=== PATIENT | female | born 1990 | race American Indian/Alaskan Native ===

== ENCOUNTER 2017-03-05 04:41 | Inpatient (IN) | payer SELFPAY ==
[2017-03-05] MEDS ORDERED: ZOFRAN IV ONE (04:57)
[2017-03-05 05:28] LABS: Hematocrit 50.5 % (30.3-42.9); Hemoglobin 17.6 gm/dl (10.1-14.3); Mean Corpuscular HGB Conc 35 % (30-34); Mean Corpuscular Hemoglobin 32 pg (28-32); Mean Corpuscular Volume 90 fl (79-97); Platelet Count 182 K/mm3 (140-440); Red Blood Count 5.59 M/mm3 (3.65-5.03); Red Cell Distribution Width 12.8 % (13.2-15.2)
[2017-03-05 05:35] LABS: Calcium 9.1 mg/dL (8.4-10.2)
[2017-03-05] MEDS ORDERED: NACL 0.9% 1000 ML 1,000 ML IV ONE ×2 (06:19→06:40)
[2017-03-05 06:24] LABS: Bacteria,Urine 1+ /HPF (Negative); Bilirubin,Urine NEG (Negative); Blood,Urine MOD (Negative); Color,Urine Yellow (Yellow); Hyaline Casts,Urine 4 /LPF; Mucus,Urine FEW /HPF; Nitrite,Urine NEG (Negative)
[2017-03-05] MEDS ORDERED: SUBLIMAZE IV ONE (06:41)
[2017-03-05] MEDS ORDERED: REGLAN IV ONE (06:41)
[2017-03-05] MEDS ORDERED: TESSALON PERLES PO ONE (06:43)
--- NOTE | 2017-03-05 06:48 | Emergency Department Report ---
HPI - General Chief Complaint: Nausea/Vomiting/Diarrhea Time Seen by Provider: 03/05/17 06:13 - HPI HPI: The patient is a 26-year-old female presents for evaluation of nausea and vomiting and abdominal pain. The patient reports 10-12 days of are and off abdominal pain, crampy in quality, moderate in severity, exacerbated with vomiting, and associated with recurrent episodes of nausea and vomiting. She also reports cough of same duration, generalized myalgias, and generalized weakness. The patient denies fever, trauma to the abdomen, chest pain, dyspnea, hemoptysis, diarrhea, blood in the stool, dark tarry stool, dysuria, hematuria, flank pain, genital discharge, inability to pass flatus, or vaginal bleeding. ED Past Medical Hx - Past Medical History Previous Medical History?: No - Surgical History Past Surgical History?: No - Social History Smoking Status: Current Every Day Smoker Substance Use Type: None - Medications Home Medications: Home Medications Medication Instructions Recorded Confirmed Last Taken Type No Known Home Medications [No 03/05/17 03/05/17 Unknown History Reported Home Medications] ED Review of Systems ROS: Stated complaint: WEAKNESS; N/V Other details as noted in HPI Constitutional: denies: fever ENT: denies: throat or neck pain Respiratory: denies: cough, shortness of breath Cardiovascular: denies: chest pain Endocrine: denies unexplained weight loss or gain Gastrointestinal: reports abdominal pain, nausea Genitourinary: denies: dysuria Musculoskeletal: denies: leg swelling Skin: denies: rash Neurological: denies: headache Hematological/Lymphatic: denies: easy bleeding or easy bruising Psych: denies sadness or hopelessness Physical Exam - Physical Exam Vital Signs: Vital Signs 03/05/17 03/05/17 04:47 05:40 Temperature 98.2 F 97.8 F Pulse Rate 109 H 80 Respiratory 16 16 Rate Blood Pressure 106/57 Blood Pressure 106/65 [Left] O2 Sat by Pulse 98 99 Oximetry Physical Exam: General: well-nourished, well-developed, no acute distress Head: Normocephalic, atraumatic Eyes: normal sclera ENT: Mucous membranes are pale and dry Neck: No neck stiffness, no cervical adenopathy Respiratory: Breath sounds equal bilaterally, no wheezing, rales, or rhonchi Cardio: S1 and S2 present, no murmurs, rubs, gallops, capillary refill is delayed Abdomen: Normoactive bowel sounds, soft abdomen, periumbilical tenderness present, no rigidity, no guarding or rebound tenderness Chest WALL/Back: No tenderness to palpation of the chest wall, no CVA tenderness with percussion Musc: No pitting edema Skin: No rash Neuro: no facial drooping, normal speech Psych: Normal affect ED Course Vital Signs 03/05/17 03/05/17 04:47 05:40 Temperature 98.2 F 97.8 F Pulse Rate 109 H 80 Respiratory 16 16 Rate Blood Pressure 106/57 Blood Pressure 106/65 [Left] O2 Sat by Pulse 98 99 Oximetry ED Medical Decision Making - Lab Data Result diagrams: 03/05/17 05:03 03/05/17 05:03 - Medical Decision Making The patient was seen and examined by myself. The patient is placed on a site monitor and continuous pulse ox. On initial evaluation, the patient was found to be in no distress. Evaluation orders are placed. IV access is established and the patient is given 1 L normal saline fluid bolus and Zofran for nausea, and IV analgesic for pain. Lab results revealed low Na and chloride levels, neg preg test, and elevated BUN of 69, elevated creatinine of 2.9, BUN/ creatinine ratio greater than 2-1, findings consistent with prerenal acute kidney failure. Urinalysis revealed elevated UWBC, although contamination suspected as u/a positive for epithelial cells and patient negative for dysuria/ freq. As patient has no history of kidney injury, and she is found to have new diagnosis of kidney failure, the patient will be admitted for continued fluid resuscitation/treatment of dehydration, and further evaluation of renal failure. The on-call hospitalist service was contacted. They agreed to admit the patient for further treatment and close monitoring. The ED admit order was placed. The patient was admitted in guarded condition. Critical care attestation.: If time is entered above; I have spent that time in minutes in the direct care of this critically ill patient, excluding procedure time. ED Disposition Clinical Impression: Dehydration, Nausea and vomiting in adult, Acute hyponatremia, Acute UTI ( urinary tract infection) Acute kidney failure Qualifiers: Acute renal failure type: unspecified Qualified Code(s): N17.9 - Acute kidney failure, unspecified Disposition: OP ADMIT IP TO THIS HOSP Is pt being admited?: Yes Does the pt Need Aspirin: No Condition: Serious Referrals: FERNANDO GONZALEZ MD [Primary Care Provider] - 3-5 Days Time of Disposition: 06:34
[2017-03-05 07:48] LABS: Band Neutrophils # (Manual) 0.3 K/mm3; Basophils % (Manual) 0 % (0.0-1.8); Eosinophils % (Manual) 0 % (0.0-4.3); Total Cells Counted 100
[2017-03-05 07:49] LABS: RBC Morphology Normal
[2017-03-05] MEDS ORDERED: ROCEPHIN/NS 1 GM/50 ML 1 GM/50 ML BAG IV ONE (08:09)
[2017-03-05] MEDS ORDERED: cefTRIAXone 1 GM in NACL 0.9% 20 ML IV ONE (09:00)
[2017-03-05 09:06] LABS: Albumin 4.1 g/dL (3.9-5); Bilirubin,Direct 0.2 mg/dL (0-0.2)
--- NOTE | 2017-03-05 09:15 | History and Physical Report ---
History of Present Illness Date of examination: 03/05/17 Date of admission: 03/05/17 08:06 Chief complaint: nausea,vomiting,abdominal pain for 2 weeks History of present illness: Patient is a 26-year-old with no significant medical history. She presents with nausea vomiting, abdominal pain and loss of appetite for 2 weeks. Nausea and vomiting is several times a day. Abdominal pain is 8/10, it is diffuse and sometimes both flanks, , dull pain with no radiation. Abdominal pain not related to meals. No fever. Symptoms getting worse therefore came to Emergency Department for evaluation. In ED found to have UTi and acute kidney injury. Started on iv fluids and Antibiotics. Will admit. Past History Past Medical History: No medical history Past Surgical History: No surgical history Social history: single, smoking, full code. denies: alcohol abuse, IV drug use Family history: hypertension Medications and Allergies Allergies Allergy/AdvReac Type Severity Reaction Status Date / Time No Known Allergies Allergy Verified 03/05/17 06:15 Home Medications Medication Instructions Recorded Confirmed Last Taken Type No Known Home Medications [No 03/05/17 03/05/17 Unknown History Reported Home Medications] Active Meds: Active Medications Dextrose/Sodium Chloride (D5ns) 1,000 mls @ 125 mls/hr IV DIRECT JEANNE Review of Systems All systems: negative (No headache, no cough, no chest pain. All other systems reviewed and are negative.) Exam - Physical Exam Narrative exam: GEN APPEARANCE : Not in acute distress, HEENT: Normocephalic, Atraumatic NECK : supple, no JVD LUNGS: Clear to auscultation bilaterally, no rales, no wheeze HEART: S1 and S2 regular tachy, no murmurs, rubs or gallop ABD: Soft, mild diffuse tender, tender left flank,no rebound tenderness, normal bowel sounds EXT: No edema,no clubbing, no cyanosis NEURO: Awake,alert, oriented x 3, no focal signs Psych: Normal mood - Constitutional Vitals: Temp Pulse Resp BP Pulse Ox 97.8 F 80 16 99/57 99 03/05/17 05:40 03/05/17 05:40 03/05/17 05:40 03/05/17 07:01 03/05/17 07:01 Results - Labs CBC & Chem 7: 03/06/17 08:34 03/06/17 08:34 Labs: Abnormal lab results 03/05/17 03/05/17 03/05/17 Range/Units 05:03 05:03 05:39 WBC 4.4 L (4.5-11.0) K/mm3 RBC 5.59 H (3.65-5.03) M/mm3 Hgb 17.6 H (10.1-14.3) gm/dl Hct 50.5 H (30.3-42.9) % MCHC 35 H (30-34) % RDW 12.8 L (13.2-15.2) % Monocytes % (Manual) 28.0 H (0.0-7.3) % Nucleated RBC % 1.0 H (0.0-0.9) % Lymphocytes # (Manual) 0.9 L (1.2-5.4) K/mm3 Monocytes # (Manual) 1.2 H (0.0-0.8) K/mm3 Sodium 131 L (137-145) mmol/L Chloride 84.3 L (98-107) mmol/L BUN 69 H (7-17) mg/dL Creatinine 2.7 H (0.7-1.2) mg/dL Glucose 111 H (65-100) mg/dL AST (5-40) units/L Urine WBC (Auto) 50.0 H (0.0-6.0) /HPF 03/05/17 03/05/17 Range/Units 06:58 06:58 WBC (4.5-11.0) K/mm3 RBC (3.65-5.03) M/mm3 Hgb (10.1-14.3) gm/dl Hct (30.3-42.9) % MCHC (30-34) % RDW (13.2-15.2) % Monocytes % (Manual) (0.0-7.3) % Nucleated RBC % (0.0-0.9) % Lymphocytes # (Manual) (1.2-5.4) K/mm3 Monocytes # (Manual) (0.0-0.8) K/mm3 Sodium 135 L (137-145) mmol/L Chloride (98-107) mmol/L BUN (7-17) mg/dL Creatinine 2.8 H (0.7-1.2) mg/dL Glucose (65-100) mg/dL AST 50 H (5-40) units/L Urine WBC (Auto) (0.0-6.0) /HPF Assessment and Plan Acute pyelonephritis. Admit to med surg. Started on Ceftriaxone. Give iv fluids. Urine culture Acute kidney injury due to vasomotor nephropathy. Creatinine 2.7. No previous history of chronic kidney disease.Start iv fluids. Repeat BMP in evening nausea and vomiting due to UTI. Zofran iv prn Dehydration. Due to vomiting.This should improve with iv fluids Hyponatremia. Recheck after iv fluids DVT prophylaxis with Heparin. Full code status
[2017-03-05] MEDS: D5NS 1,000 ML IV SCH (10:47)
[2017-03-05 19:44] LABS: Creatinine,Urine 74.2 mg/dL (0.1-20.0); Fractional Sodium Excretion 0.5
[2017-03-05 19:45] LABS: Calcium 7.7 mg/dL (8.4-10.2)
[2017-03-06] MEDS: D5NS 1,000 ML IV SCH ×2 (01:19→10:25)
[2017-03-06] MEDS: MORPHINE IV PRN ×2 (01:21→10:28)
[2017-03-06 09:13] LABS: Hematocrit 37.8 % (30.3-42.9); Hemoglobin 12.6 gm/dl (10.1-14.3); Mean Corpuscular HGB Conc 34 % (30-34); Mean Corpuscular Hemoglobin 31 pg (28-32); Mean Corpuscular Volume 91 fl (79-97); Platelet Count 132 K/mm3 (140-440); Red Blood Count 4.14 M/mm3 (3.65-5.03); Red Cell Distribution Width 12.5 % (13.2-15.2)
[2017-03-06 09:33] LABS: BUN/Creatinine Ratio 18; Blood Urea Nitrogen 20 mg/dL (7-17); Calcium 8.4 mg/dL (8.4-10.2); Hemolysis Index 4
[2017-03-06] MEDS ORDERED: cefTRIAXone 1 GM in NACL 0.9% 20 ML IV SCH (10:00)
[2017-03-06] MEDS: ZOFRAN IV PRN (10:30)
--- NOTE | 2017-03-06 15:09 | Progress Note ---
Assessment and Plan Assessment and plan: Acute pyelonephritis. Continue Ceftriaxone. Give iv fluids. Urine culture. Blood cultures no growth. CT abdomen done today-unremarkable. Acute kidney injury due to vasomotor nephropathy. Much improved. Creatinine 1.1 tday , was 2.7 on admission.. No previous history of chronic kidney disease. Continue iv fluids nausea and vomiting due to UTI. Zofran iv prn Dehydration. Due to vomiting.This should improve with iv fluids Hyponatremia. Recheck after iv fluids DVT prophylaxis with Heparin. Full code status Poss ri home tomorrow History Interval history: Feels better, Less vomiting, less abdominal pain Hospitalist Physical - Physical exam Narrative exam: GEN APPEARANCE : Not in acute distress, HEENT: Normocephalic, Atraumatic NECK : supple, no JVD LUNGS: Clear to auscultation bilaterally, no rales, no wheeze HEART: S1 and S2 regular tachy, no murmurs, rubs or gallop ABD: Soft, mild diffuse tender, tender left flank,no rebound tenderness, normal bowel sounds EXT: No edema,no clubbing, no cyanosis NEURO: Awake,alert, oriented x 3, no focal signs Psych: Normal mood - Constitutional Vitals: Temp Pulse Resp BP Pulse Ox 98.9 F 70 20 93/61 99 03/06/17 07:50 03/06/17 07:50 03/06/17 07:50 03/06/17 07:50 03/06/17 07:50 Results - Labs CBC & Chem 7: 03/06/17 08:34 03/06/17 08:34 Labs: Laboratory Last Values WBC 2.8 K/mm3 (4.5-11.0) L 03/06/17 08:34 RBC 4.14 M/mm3 (3.65-5.03) 03/06/17 08:34 Hgb 12.6 gm/dl (10.1-14.3) D 03/06/17 08:34 Hct 37.8 % (30.3-42.9) D 03/06/17 08:34 MCV 91 fl (79-97) 03/06/17 08:34 MCH 31 pg (28-32) 03/06/17 08:34 MCHC 34 % (30-34) 03/06/17 08:34 RDW 12.5 % (13.2-15.2) L 03/06/17 08:34 Plt Count 132 K/mm3 (140-440) L 03/06/17 08:34 [place]lin % (Auto) Music Mixer 03/05/17 05:03 Add Manual Diff Complete 03/05/17 05:03 Total Counted 100 03/05/17 05:03 Seg Neuts % (Manual) 45.0 % (40.0-70.0) 03/05/17 05:03 Band Neutrophils % 7.0 % 03/05/17 05:03 Lymphocytes % (Manual) 20.0 % (13.4-35.0) 03/05/17 05:03 Reactive Lymphs % (Man) 0 % 03/05/17 05:03 Monocytes % (Manual) 28.0 % (0.0-7.3) H 03/05/17 05:03 Eosinophils % (Manual) 0 % (0.0-4.3) 03/05/17 05:03 Basophils % (Manual) 0 % (0.0-1.8) 03/05/17 05:03 Metamyelocytes % 0 % 03/05/17 05:03 Myelocytes % 0 % 03/05/17 05:03 Promyelocytes % 0 % 03/05/17 05:03 Blast Cells % 0 % 03/05/17 05:03 Nucleated RBC % 1.0 % (0.0-0.9) H 03/05/17 05:03 Seg Neutrophils # Man 2.0 K/mm3 (1.8-7.7) 03/05/17 05:03 Band Neutrophils # 0.3 K/mm3 03/05/17 05:03 Lymphocytes # (Manual) 0.9 K/mm3 (1.2-5.4) L 03/05/17 05:03 Abs React Lymphs (Man) 0.0 K/mm3 03/05/17 05:03 Monocytes # (Manual) 1.2 K/mm3 (0.0-0.8) H 03/05/17 05:03 Eosinophils # (Manual) 0.0 K/mm3 (0.0-0.4) 03/05/17 05:03 Basophils # (Manual) 0.0 K/mm3 (0.0-0.1) 03/05/17 05:03 Metamyelocytes # 0.0 K/mm3 03/05/17 05:03 Myelocytes # 0.0 K/mm3 03/05/17 05:03 Promyelocytes # 0.0 K/mm3 03/05/17 05:03 Blast Cells # 0.0 K/mm3 03/05/17 05:03 WBC Morphology Not Reportable 03/05/17 05:03 Hypersegmented Neuts Not Reportable 03/05/17 05:03 Hyposegmented Neuts Not Reportable 03/05/17 05:03 Hypogranular Neuts Not Reportable 03/05/17 05:03 Smudge Cells Not Reportable 03/05/17 05:03 Toxic Granulation Not Reportable 03/05/17 05:03 Toxic Vacuolation Not Reportable 03/05/17 05:03 Dohle Bodies Not Reportable 03/05/17 05:03 Pelger-Huet Anomaly Not Reportable 03/05/17 05:03 Mook Rods Not Reportable 03/05/17 05:03 Platelet Estimate Appears normal 03/05/17 05:03 Clumped Platelets Not Reportable 03/05/17 05:03 Plt Clumps, EDTA Not Reportable 03/05/17 05:03 Large Platelets Not Reportable 03/05/17 05:03 Giant Platelets Not Reportable 03/05/17 05:03 Platelet Satelliting Not Reportable 03/05/17 05:03 Plt Morphology Comment Not Reportable 03/05/17 05:03 RBC Morphology Normal 03/05/17 05:03 Dimorphic RBCs Not Reportable 03/05/17 05:03 Polychromasia Not Reportable 03/05/17 05:03 Hypochromasia Not Reportable 03/05/17 05:03 Poikilocytosis Not Reportable 03/05/17 05:03 Anisocytosis Not Reportable 03/05/17 05:03 Microcytosis Not Reportable 03/05/17 05:03 Macrocytosis Not Reportable 03/05/17 05:03 Spherocytes Not Reportable 03/05/17 05:03 Pappenheimer Bodies Not Reportable 03/05/17 05:03 Sickle Cells Not Reportable 03/05/17 05:03 Target Cells Not Reportable 03/05/17 05:03 Tear Drop Cells Not Reportable 03/05/17 05:03 Ovalocytes Not Reportable 03/05/17 05:03 Helmet Cells Not Reportable 03/05/17 05:03 Forbes-Mcclusky Bodies Not Reportable 03/05/17 05:03 Premier Rings Not Reportable 03/05/17 05:03 Anjali Cells Not Reportable 03/05/17 05:03 Bite Cells Not Reportable 03/05/17 05:03 Crenated Cell Not Reportable 03/05/17 05:03 Elliptocytes Not Reportable 03/05/17 05:03 Acanthocytes (Spur) Not Reportable 03/05/17 05:03 Rouleaux Not Reportable 03/05/17 05:03 Hemoglobin C Crystals Not Reportable 03/05/17 05:03 Schistocytes Not Reportable 03/05/17 05:03 Malaria parasites Not Reportable 03/05/17 05:03 ESR 12 mm/Hr (0-20) 03/05/17 06:58 Guevara Bodies Not Reportable 03/05/17 05:03 Hem Pathologist Commnt No 03/05/17 05:03 Sodium 144 mmol/L (137-145) D 03/06/17 08:34 Potassium 3.5 mmol/L (3.6-5.0) L 03/06/17 08:34 Chloride 104.4 mmol/L (98-107) 03/06/17 08:34 Carbon Dioxide 27 mmol/L (22-30) 03/06/17 08:34 Anion Gap 16 mmol/L 03/06/17 08:34 BUN 20 mg/dL (7-17) H 03/06/17 08:34 Creatinine 1.1 mg/dL (0.7-1.2) 03/06/17 08:34 Estimated GFR > 60 ml/min 03/06/17 08:34 BUN/Creatinine Ratio 18 % 03/06/17 08:34 Glucose 114 mg/dL (65-100) H 03/06/17 08:34 Calcium 8.4 mg/dL (8.4-10.2) 03/06/17 08:34 Total Bilirubin 0.50 mg/dL (0.1-1.2) 03/05/17 06:58 Direct Bilirubin 0.2 mg/dL (0-0.2) 03/05/17 06:58 Indirect Bilirubin 0.3 mg/dL 03/05/17 06:58 AST 50 units/L (5-40) H 03/05/17 06:58 ALT 30 units/L (7-56) 03/05/17 06:58 Alkaline Phosphatase 81 units/L (35-129) 03/05/17 06:58 C-Reactive Protein 1.20 mg/dL (0.00-1.30) 03/05/17 06:58 Total Protein 8.1 g/dL (6.3-8.2) 03/05/17 06:58 Albumin 4.1 g/dL (3.9-5) 03/05/17 06:58 Albumin/Globulin Ratio 1.0 % 03/05/17 06:58 Lipase 21 units/L (13-60) 03/05/17 06:58 HCG, Qual Negative (Negative) 03/05/17 05:03 Urine Color Yellow (Yellow) 03/05/17 05:39 Urine Turbidity Clear (Clear) 03/05/17 05:39 Urine pH 5.0 (5.0-7.0) 03/05/17 05:39 Ur Specific [place] 1.018 (1.003-1.030) 03/05/17 05:39 Urine Protein 100 mg/dl mg/dL (Negative) 03/05/17 05:39 Urine Glucose (UA) 50 mg/dL (Negative) 03/05/17 05:39 Urine Ketones Tr mg/dL (Negative) 03/05/17 05:39 Urine Blood Mod (Negative) 03/05/17 05:39 Urine Nitrite Neg (Negative) 03/05/17 05:39 Urine Bilirubin Neg (Negative) 03/05/17 05:39 Urine Urobilinogen 2.0 mg/dL (<2.0) 03/05/17 05:39 Ur Leukocyte Esterase Tr (Negative) 03/05/17 05:39 Urine WBC (Auto) 50.0 /HPF (0.0-6.0) H 03/05/17 05:39 Urine RBC (Auto) 7.0 /HPF (0.0-6.0) 03/05/17 05:39 U Epithel Cells (Auto) 12.0 /HPF (0-13.0) 03/05/17 05:39 Urine Bacteria (Auto) 1+ /HPF (Negative) 03/05/17 05:39 Ur Transition Epith Cell < 1 /HPF 03/05/17 05:39 Hyaline Casts 4 /LPF 03/05/17 05:39 Urine Mucus Few /HPF 03/05/17 05:39 Urine Creatinine 74.2 mg/dL (0.1-20.0) H 03/05/17 18:10 Urine Sodium 23 mmol/L 03/05/17 18:10 Fraction Sodium Excret 0.5 03/05/17 18:10
--- NOTE | 2017-03-06 17:23 | Cat Scan Report ---
FINAL REPORT EXAM: CT ABDOMEN PELVIS W CON HISTORY: Abdomenal pain, vomiting TECHNIQUE: CT abdomen and pelvis with intravenous contrast PRIORS: None. FINDINGS: No acute abnormality identified in the lung bases. No focal abnormality identified within the liver parenchyma. The spleen demonstrates normal size and attenuation. No pancreatic abnormalities seen. The kidneys demonstrate symmetric contrast enhancement. No evidence of hydronephrosis. The adrenal glands are unremarkable Abdominal aorta is normal in caliber. No pathologically enlarged lymph nodes are identified. No signs of free fluid or free air No evidence of small bowel dilatation. Colon is nondistended. No pericolonic inflammatory change. Urinary bladder is unremarkable. There is an IUD seen centrally within the uterus IMPRESSION: IUD within the uterus No acute abnormalities seen
[2017-03-06] MEDS: HEPARIN SUB-Q SCH (18:12)
[2017-03-07] MEDS: MORPHINE IV PRN (00:23)
[2017-03-07] MEDS: ZOFRAN IV PRN (00:23)
[2017-03-07] MEDS ORDERED: DILAUDID IV PRN (03:12)
[2017-03-07 04:54] LABS: Creatine Kinase MB 2.3 ng/mL (0.0-4.0)
[2017-03-07] MEDS: HEPARIN SUB-Q SCH (06:45)
[2017-03-07 08:50] VITALS: BP 96/59
[2017-03-07 10:15] LABS: Hematocrit 34.7 % (30.3-42.9); Hemoglobin 11.4 gm/dl (10.1-14.3); Mean Corpuscular HGB Conc 33 % (30-34); Mean Corpuscular Hemoglobin 31 pg (28-32); Mean Corpuscular Volume 93 fl (79-97); Platelet Count 128 K/mm3 (140-440); Red Blood Count 3.72 M/mm3 (3.65-5.03); Red Cell Distribution Width 12.3 % (13.2-15.2)
[2017-03-07 10:30] LABS: BUN/Creatinine Ratio 9; Blood Urea Nitrogen 8 mg/dL (7-17); Calcium 7.9 mg/dL (8.4-10.2); Hemolysis Index 2
--- NOTE | 2017-03-07 12:04 | Discharge Summary ---
Providers - Providers Date of Admission: 03/05/17 08:06 Attending physician: SHEYLA HENNING MD Primary care physician: FERNANDO GONZALEZ Hospitalization Reason for admission: acute cystitis Condition: Stable Hospital course: Patient is a 26-year-old with no significant medical history. She presents with nausea vomiting, abdominal pain and loss of appetite for 2 weeks. Nausea and vomiting is several times a day. Abdominal pain is 8/10, it is diffuse and sometimes both flanks, , dull pain with no radiation. Abdominal pain not related to meals. No fever. Symptoms getting worse therefore came to Emergency Department for evaluation. In ED found to have UTi and acute kidney injury. Started on iv fluids and Antibiotics. Patient improved this morning status is tolerating clear liquids. She is adamant about being discharged. No further fevers noted left flank pain has improved. She is advised to follow-up with her primary care physician I also a BLOCK BREAKER OPERATOR to show normal gynecological pathology. She'll be discharged on Levaquin to complete a total of 5 day treatment. Discharge diagnosis Acute pyelonephritis. Acute kidney injury due to vasomotor nephropathy. nausea and vomiting due to UTI. Dehydration. Due to vomiting. Hyponatremia. Disposition: DC-01 TO HOME OR SELFCARE Time spent for discharge: 35 MINS Core Measure Documentation - Palliative Care Palliative Care/ Comfort Measures: Not Applicable - Core Measures Any of the following diagnoses?: none - VTE Discharge Requirements Deep Vein Thrombosis/Pulmonary Embolism Present on Admission: No Exam - Physical Exam Narrative exam: VITAL SIGNS: Reviewed. GENERAL: The patient appeared well nourished and normally developed. Vital signs as documented. HEAD: No signs of head trauma. EYES: Pupils are equal. Extraocular motions intact. EARS: Hearing grossly intact. MOUTH: Oropharynx is normal. NECK: No adenopathy, no JVD. CHEST: Chest with clear breath sounds bilaterally. No wheezes, rales, or rhonchi. CARDIAC: Regular rate and rhythm. S1 and S2, without murmurs, gallops, or rubs. VASCULAR: No Edema. Peripheral pulses normal and equal in all extremities. ABDOMEN: Soft, without detectable tenderness. No sign of distention. No rebound or guarding, and no masses palpated. Bowel Sounds normal. MUSCULOSKELETAL: Good range of motion of all major joints. Extremities without clubbing, cyanosis or edema. NEUROLOGIC EXAM: Alert and oriented x 3. No focal sensory or strength deficits. Speech normal. Follows commands. PSYCHIATRIC: Mood normal. SKIN: No rash or lesions. - Constitutional Vitals: Temp Pulse Resp BP Pulse Ox 98.4 F 50 L 20 96/59 100 03/07/17 08:40 03/07/17 08:40 03/07/17 08:40 03/07/17 08:40 03/07/17 08:40 Plan Activity: advance as tolerated Diet: regular Special Instructions: smoking cessation Follow up with: FERNANDO GONZALEZ MD [Primary Care Provider] - 3-5 Days Prescriptions: Ciprofloxacin HCl [Ciprofloxacin TAB] 500 mg PO Q12HR #6 tab Ondansetron [Zofran TAB] 4 mg PO Q8HR PRN #30 tablet PRN Reason: Nausea
[2017-03-08 19:41] LABS: Myeloperoxidase Antibody <1.0 AI (<1.0)
== END 2017-03-07 15:00 | disposition home or self-care (01) | DRG 689 ==
LOC: ED 04:41 → 3A 08:06
PROVIDERS: ADMIT Internal Medicine; ATTEND Internal Medicine
DX: N39.0 Urinary tract infection, site not specified (principal); N17.0 Acute kidney failure with tubular necrosis; E87.1 Hypo-osmolality and hyponatremia; N10 Acute pyelonephritis; E86.0 Dehydration; Z60.2 Problems related to living alone; F17.200 Nicotine dependence, unspecified, uncomplicated; Z82.49 Family history of ischemic heart disease and other diseases of the circulatory system
CPT/HCPCS: 36415; 74177; 80048; 80074; 81001; 82550; 82553; 82565; 82570; 83690; 84295; 84300; 84484; 84703; 85007; 85025; 85027; 85652; 86021; 86060; 86140; 87040; 87086; 87400; 93005; 93010; 96361; 96374; 96375; 99406; J0696; J1170; J1644; J2270; J2405; J2765; J3010; J7030; J7042; Q9967